=== PATIENT | female | born 1955 | race Caucasian/White ===

== ENCOUNTER 2021-05-25 06:10 | Day surgery (SDC) | payer MEDICARE ==
[2021-05-24 08:41] VITALS: BMI 26.2
[~2021-05-25 06:10] MED LIST: CYCLOPENTOLATE 1% OPHTH SOLN 2 ML BTL OP PRN; LACTATED RINGERS 1,000 ML IV SCH; LIDOCAINE 1% (10MG/ML) FOR IV START INTRADERMA PRN; MOXIFLOXACIN HCL 0.5% DROPS 3 ML BTL OP PRN; PHENYLEPHRINE 2.5% OPHTH DRP 2ML OP PRN; TETRACAINE 0.5% OPHTH (PF) DROPS 4 ML BTL OP PRN; TIMOLOL 0.5% OPHTH DROPS 5 ML BTL OP PRN
[2021-05-25 06:57] VITALS: RESP 16; TEMP 98.4
[2021-05-25 07:15] LABS: Glucose,Whole Blood 149 mg/dL (75-99)
[2021-05-25] MEDS ORDERED: MIDAZOLAM 2 MG/2 ML VIAL ONE (07:25)
[2021-05-25] MEDS ORDERED: fentaNYL (PF) 50 MCG/ML 2 ML AMP ONE (07:25)
[2021-05-25] MEDS ORDERED: EPINEPHrine (PF) 0.3 ML in BALANCED SALT IRRIG SOLN COMB2 500 ML IRRIGATION ONE (07:34)
[2021-05-25] MEDS ORDERED: HYALURONATE SODIUM INTRAOCULAR 1 EACH SYRINGE (12MG/ML) INTRAOCULA ONE (07:37)
[2021-05-25] MEDS ORDERED: LIDOCAINE 1% (PF) 10MG/ML VIAL MISCELLANE ONE (07:38)
[2021-05-25] MEDS ORDERED: BALANCED SALT IRRIG SOLN COMB2 15 ML IRRIG.SOLN INTRAOCULA ONE (07:38)
--- NOTE | 2021-05-25 07:57 | P.OP ---
Date of Procedure: 05/25/21 Preoperative Diagnosis: NS & CS & PSC Postoperative Diagnosis: same Procedure(s) Performed: PIOL, OD Implants: MX60E 17.50 Anesthesia: MAC Surgeon: Tino Aguilar Pathology: none sent Condition: stable Disposition: same day Indications for Procedure: blurry vision Operative Findings: no complications
[2021-05-25 08:25] VITALS: BP 156/68; PULSE 76
--- NOTE | 2021-05-26 09:19 | OP ---
OPERATIVE REPORT DATE OF SERVICE: May 25, 2021 PROCEDURES: Phacoemulsification of cataract and intraocular lens implant of the right eye. PREOPERATIVE DIAGNOSE: Nuclear sclerosis cortical sclerosis, posterior subcapsular cataract. PREOPERATIVE DIAGNOSES: Nuclear sclerosis cortical sclerosis, posterior subcapsular cataract. OPERATION: Clear cornea phacoemulsification of cataract right OD eye. ESTIMATED BLOOD LOSS: Zero. SPECIMEN TAKEN: None. NARRATIVE: After obtaining the appropriate consent, the patient was brought to the Operating Room where the patient was placed under cardiac monitoring and prepped and draped in the usual sterile manner. At the 11 o'clock position a 15 degree super sharp blade was used to create a paracentesis followed by instillation of 1% Xylocaine MPF 50:50 mix with BSS into the anterior chamber. This was followed by Amvisc to stabilize the anterior chamber. At the 9 o'clock position a self-sealing corneal flap incision was created using 2.8 mm luke keratome. A cystotome was used to initiate a continuous tear capsulorrhexis which was completed with the Utrata forceps. A Binkhorst cannula was used to hydrodissect the lens nucleus followed by hydrodelineation. Phacoemulsification of the lens was performed utilizing phacochop in 14.3 seconds at 14% power. The remaining cortical material was removed using the irrigation aspiration mode followed by additional 1% Xylocaine MPF into the anterior chamber followed by viscoelastic to stabilize the capsular bag. A [employer]ch [employer] Lomb MX60E 17.5 diopter posterior chamber lens was placed into the capsular bag without difficulty. The remaining viscoelastic material was removed from the anterior chamber with the irrigation/aspiration. Balanced salt solution was used to normalize the intraocular pressure. The incision was checked for watertight integrity. The patient then received two drops of 0.5% timolol followed by two drops Vigamox, was lightly patched and shielded in the usual manner. There were no complications from the procedure. The patient tolerated the procedure well and was returned to recovery in good condition. MMODL / IJN: [id number] /
== END 2021-05-25 08:52 | disposition home or self-care (01) ==
LOC: OR 06:10
PROVIDERS: ATTEND Ophthalmology
DX: H25.11 Age-related nuclear cataract, right eye (principal); Z79.899 Other long term (current) drug therapy; I10 Essential (primary) hypertension; E78.5 Hyperlipidemia, unspecified; E11.9 Type 2 diabetes mellitus without complications; K21.9 Gastro-esophageal reflux disease without esophagitis; Z88.5 Allergy status to narcotic agent; Z88.2 Allergy status to sulfonamides; Z79.82 Long term (current) use of aspirin
CPT/HCPCS: 66984; C1780; J2250; J0171; J3010; J2001

== ENCOUNTER 2021-06-08 08:55 | Day surgery (SDC) | payer MEDICARE ==
[2021-06-06 15:16] VITALS: BMI 26.5
[~2021-06-08 08:55] MED LIST changes: -LIDOCAINE 1% (10MG/ML) FOR IV START INTRADERMA PRN
[2021-06-08] MEDS ORDERED: LIDOCAINE 1% (10MG/ML) FOR IV START INTRADERMA ONE (09:57)
[2021-06-08 10:02] LABS: Glucose,Whole Blood 127 mg/dL (75-99)
[2021-06-08 10:16] VITALS: TEMP 98.9
[2021-06-08] MEDS ORDERED: fentaNYL (PF) 50 MCG/ML 2 ML AMP ONE (10:42)
[2021-06-08] MEDS ORDERED: MIDAZOLAM 2 MG/2 ML VIAL ONE (10:42)
[2021-06-08] MEDS ORDERED: EPINEPHrine (PF) 0.3 ML in BALANCED SALT IRRIG SOLN COMB2 500 ML IRRIGATION ONE (11:01)
[2021-06-08] MEDS ORDERED: LIDOCAINE 1% (PF) 10MG/ML VIAL MISCELLANE ONE (11:03)
[2021-06-08] MEDS ORDERED: BALANCED SALT IRRIG SOLN COMB2 15 ML IRRIG.SOLN IRRIGATION ONE (11:03)
[2021-06-08] MEDS ORDERED: HYALURONATE SODIUM INTRAOCULAR 1 EACH SYRINGE (12MG/ML) INTRAOCULA ONE (11:03)
--- NOTE | 2021-06-08 11:16 | P.OP ---
Date of Procedure: 06/08/21 Preoperative Diagnosis: NS & CS Postoperative Diagnosis: same Procedure(s) Performed: PIOL, OS Implants: MX60E 18.00 Anesthesia: MAC Surgeon: Tino Aguilar Pathology: none sent Condition: stable Disposition: same day Indications for Procedure: blurry vision Operative Findings: no complications
[2021-06-08 11:22] VITALS: RESP 16
[2021-06-08 12:03] VITALS: BP 151/76; PULSE 87
--- NOTE | 2021-06-08 19:48 | OP ---
OPERATIVE REPORT DATE OF SURGERY: June 08, 2021 PROCEDURE: Phacoemulsification of cataract and intraocular lens implant of the left eye. PREOPERATIVE DIAGNOSES: Nuclear sclerosis, cortical sclerosis. POSTOPERATIVE DIAGNOSES: Nuclear sclerosis, cortical sclerosis. SURGEON: Dr. Tino Aguilar. ANESTHESIA: Topical. ESTIMATED BLOOD LOSS: None. SPECIMEN: Taken none. DESCRIPTION OF PROCEDURE: After obtaining the appropriate consent, the patient was brought to the operating room. There she was placed under cardiac monitoring, prepped and draped in the usual sterile manner. She was approached from the 12 o'clock position and at the 1 o'clock position an MVR blade was used to create a paracentesis port. Through this opening 1% Xylocaine MPF 50:50 mix with balanced salt solution was injected into the anterior chamber. At the 12 o'clock position, 2.5 mm keratome was used to create a self-sealing corneal flap incision. Through this opening, a cystotome was introduced to begin a continuous tear capsulorrhexis which was then completed using the Utrata forceps. Hydrodissection and hydrodelineation of the lens were accomplished with balanced salt solution. Phacoemulsification lens utilizing phaco chop was accomplished in 6.20 seconds at 11% power. Additional Xylocaine MPF was instilled into the anterior chamber. This was followed by removal of the remaining cortical debris as well as careful polishing of the posterior capsule in the capsule vacuum. Additional Amvisc was then used to stabilize the capsular bag and a Bausch and Lomb MX 60E 18.0 diopter posterior chamber intraocular lens was then injected into the capsular bag without difficulty. The remaining viscoelastic was then removed from in and around the intraocular lens as well as the anterior chamber. The eye was brought to normal intraocular pressure through the paracentesis port and all incisions were confirmed watertight. She then received 2 drops of 0.5% timolol as well as 2 drops of 0.5% moxifloxacin. She was then lightly patched and shielded in the usual manner. There were no complications from the procedure. She tolerated the procedure well and was returned to outpatient recovery in good condition. MMODL / IJN: [id number] /
== END 2021-06-08 12:05 | disposition home or self-care (01) ==
LOC: OR 08:55
PROVIDERS: ATTEND Ophthalmology
DX: H25.12 Age-related nuclear cataract, left eye (principal); Z79.899 Other long term (current) drug therapy; Z88.5 Allergy status to narcotic agent; Z88.2 Allergy status to sulfonamides; I10 Essential (primary) hypertension; E11.9 Type 2 diabetes mellitus without complications; E78.5 Hyperlipidemia, unspecified; K21.9 Gastro-esophageal reflux disease without esophagitis; Z79.84 Long term (current) use of oral hypoglycemic drugs; Z79.82 Long term (current) use of aspirin
CPT/HCPCS: 66984; C1780; J2250; J0171; J3010; J2001

== ENCOUNTER → 2024-08-21 | Outpatient (CLI) | payer MEDICARE ==
--- NOTE | 2024-08-22 09:27 | MR ---
EXAMINATION TYPE: MR shoulder LT wo con DATE OF EXAM: 08/21/2024 COMPARISON: None. HISTORY: Left shoulder pain, fall injury 17 weeks ago TECHNIQUE: Multiplanar, multisequence imaging of the left shoulder is performed without contrast. FINDINGS: Rotator Cuff: Some increased signal in the distal infraspinatus tendon. Heterogeneous subscapularis t endon. Full-thickness retracted tear of the supraspinatus tendon with some retraction to the level of the distal clavicle noted. Acromioclavicular Joint: Moderate to severe narrowing at the acromioclavicular joint greatest posteri lucina. Mild to moderate superior capsular hypertrophy. No significant spurring. Type II downsloping ac romion is noted. Glenohumeral Joint: Moderate to large size joint effusion. Some narrowing is seen. No significant spu rring. Labrum: The labrum appears grossly intact given limitation of non-arthrogram study. Biceps Tendon: The long head of biceps is is dislocated anteromedially from normal location within bi cipital groove. Intracapsular portion is not well seen. It is presumed torn. Bone marrow signal: No focal abnormal marrow signal is appreciated. Other: Some increased signal or edema in the superior posterior aspect of the subscapularis muscle is noted extending along the tendon. IMPRESSION: 1. Full-thickness retracted tear of the supraspinatus tendon. 2. Dislocation and suspected retracted tear of long head of biceps tendon. 3. Moderate to large sized joint effusion. Other findings as noted above. [facility], Workstation: [address], 08/21/2024 11:08 PM
== END | disposition home or self-care (01) ==
LOC: RADMRIMAIN 18:48
PROVIDERS: ATTEND Orthopaedic Surgery Sports Medicine